=== PATIENT | male | born 1995 | race Caucasian/White ===

== ENCOUNTER 2017-09-03 20:09 | Emergency (ER) | payer BC, MEDICAID ==
[2017-09-03 20:19] VITALS: BP 111/71
--- NOTE | 2017-09-03 20:55 | UC ---
Shortness of Breath HPI - HPI Summary HPI Summary: This is nestor Irving documenting for attending Eladia Jacobson M.D. Patient is a 22 y/o male who presents to [facility] c/o CP and SOB. He states he began to have 2/10 aching CP yesterday afternoon with SOB, and today he started to have a mild cough. Patient also reports weird hiccups that occur when hes smoking, so he has not smoked today. He also states hes feeling anxious, vomiting bile twice today, and feels a lump in his throat. Patient denies any digestive issues. About 1 year ago he had a panic attack with somewhat similar symptoms. Patient smokes about 1 ppd for the past 8 years. He denies any previous lung issues, but does have GERD.Has used nexium off and on for the past 6 mnths. Drinks alcohol daily, lots of coffee, smokes cigarettes. - History of Current Complaint Chief Complaint: UCChestPain Stated Complaint: CHEST CONGESTION Time Seen by Provider: 09/03/17 20:45 Hx Obtained From: Patient Onset/Duration: Gradual Onset, Lasting Days - 2, Still Present Current Severity: Mild - 2/10 Dyspnea At: Rest Aggrevating Factors: Other - Smoking Alleviating Factors: Nothing Associated Signs & Symptoms: Positive: Cough (Nonproductive), Chest Pain w/Cough , Other - Hiccups, anxious, vomiting Related History: Similar Episode - Panic attack ~1 year ago - Allergy/Home Medications Allergies/Adverse Reactions: Allergies Allergy/AdvReac Type Severity Reaction Status Date / Time No Known Allergies Allergy Verified 09/03/17 20:19 PMH/Surg Hx/FS Hx/Imm Hx GI/ History: Gastroesophageal Reflux Psychological History: Other Other Psychological History: Panic attack - Surgical History Surgical History: None - Family History Known Family History: Positive: Other - HLD, prostate and lung cancer, diverticulitis, colectomy - Social History Occupation: Employed Full-time Lives: With Family Alcohol Use: Occasionally Substance Use Type: None Smoking Status (MU): Current Every Day Smoker Amount Used/How Often: Almost 1 ppd - Immunization History Most Recent Influenza Vaccination: Pt unable to recall Review of Systems ENT: Other - lump in throat Respiratory: Shortness Of Breath, Cough Cardiovascular: Chest Pain Gastrointestinal: Vomiting, Other - "weird hiccups" Psychological: Anxious All Other Systems Reviewed And Are Negative: Yes Physical Exam Triage Information Reviewed: Yes Appearance: Well-Appearing Vital Signs: Initial Vital Signs Temp 98.3 F 09/03/17 20:16 Pulse 87 09/03/17 20:16 Resp 20 09/03/17 20:16 BP 111/71 09/03/17 20:16 Pulse Ox 100 09/03/17 20:16 Vital Signs Reviewed: Yes Eyes: Positive: Conjunctiva Clear ENT: Positive: Pharynx normal, Pharyngeal erythema Neck: Positive: Supple, Nontender Respiratory: Positive: Lungs clear, Normal breath sounds Cardiovascular: Positive: RRR, No Murmur Abdomen Description: Positive: Nontender, No Organomegaly, Soft Neurological Exam: Normal Neurological: Positive: Alert, Muscle Tone Normal Psychological Exam: Other - mildly anxious Skin Exam: Normal Shortness of Breath Dx - Course Course Of Treatment: omerazole for reflux. discussed importance of smokestopping. - Differential Dx/Diagnosis Provider Diagnoses: reflux. anxiety Discharge - Sign-Out/Discharge Documenting (check all that apply): Patient Departure - Discharge Plan Condition: Stable Disposition: HOME Prescriptions: Omeprazole 40 mg PO DAILY #30 capsule. Patient Education Materials: Gastroesophageal Reflux Disease (ED) Referrals: No Primary Care Phys,NOPCP [Primary Care Provider] - Additional Instructions: begin omeprazole 40mg once daily x 4 weeks to improve reflux. Taking t 20 to 30 minutes before a meal gives maximum effect. Continue smokestopping efforts, consider support with your primary care doctor. The [facility] hotline gives support and will provide medications to assist stopping. Decreasing smoking, alcohol and caffeine can help to decrease reflux. - Billing Disposition and Condition Condition: STABLE Disposition: Home
[2017-09-03] MEDS ORDERED: Omeprazole CAP* 20 MG PO ONE (21:04)
== END 2017-09-03 21:31 | disposition home or self-care (01) ==
LOC: UCEAST 20:09
DX: K21.9 Gastro-esophageal reflux disease without esophagitis (principal); F41.9 Anxiety disorder, unspecified; R06.02 Shortness of breath; F17.210 Nicotine dependence, cigarettes, uncomplicated
CPT/HCPCS: 93005; 99202; A9270-GY; G0463

== ENCOUNTER 2018-08-08 19:18 | Emergency (ER) | payer BC ==
[2018-08-08] MEDS ORDERED: Tetracaine 0.5% OPTH.SOL 4 ML* 1 DROP BTL ONE (20:34)
[2018-08-08] MEDS ORDERED: Fluorescein Sodium TOPICAL* 1 MG TEST STRIP OPHTHALMIC ONE (20:34)
[2018-08-08] MEDS ORDERED: Polymyx/Trimethoprim OPTH* 10 ML BTL RIGHT EYE ONE (21:00)
--- NOTE | 2018-08-08 21:00 | ED ---
Throat Pain/Nasal Congestion - HPI Summary HPI Summary: 22-year-old male presents with foreign body in right eye today. He states that he was working on a house and may have gotten something into his eye. He attempted to remove the foreign body but was unable to do so. believes his tetanus is up-to-date. Has no medical conditions. Denies any change in vision. No blurry vision or double vision. - History of Current Complaint Chief Complaint: EDEyeProblem Time Seen by Provider: 08/08/18 20:15 - Allergies/Home Medications Allergies/Adverse Reactions: Allergies Allergy/AdvReac Type Severity Reaction Status Date / Time Opioids-Methadone and Related Allergy See Comment Verified 08/08/18 19:26 PMH/Surg Hx/FS Hx/Imm Hx Endocrine/Hematology History: Denies: Hx Diabetes, Hx Thyroid Disease Cardiovascular History: Denies: Hx Hypertension Respiratory History: Denies: Hx Asthma, Hx Chronic Obstructive Pulmonary Disease (COPD) GI History: Denies: Hx Ulcer Psychiatric History: Reports: Hx Community Mental Health Tx, Hx Substance Abuse Denies: Hx Anxiety, Hx Attention Deficit Hyperactivity Disorder, Hx Eating Disorder, Hx Depression, Hx Bipolar Disorder, Hx of Violent Episodes Against Others Infectious Disease History: No Infectious Disease History: Denies: Hx Hepatitis, Hx Human Immunodeficiency Virus (HIV), Traveled Outside the [place] in Last 30 Days - Family History Known Family History: Positive: Other - HLD, prostate and lung cancer, diverticulitis, colectomy - Social History Alcohol Use: Occasionally Substance Use Type: Reports: None Smoking Status (MU): Current Every Day Smoker Amount Used/How Often: Almost 1 ppd Review of Systems Negative: Fever Positive: Erythema Negative: Chest Pain Negative: Shortness Of Breath All Other Systems Reviewed And Are Negative: Yes Physical Exam Triage Information Reviewed: Yes Vital Signs On Initial Exam: Initial Vitals Temp Pulse Resp BP Pulse Ox 99.2 F 101 20 138/84 96 08/08/18 19:25 08/08/18 19:25 08/08/18 19:25 08/08/18 19:25 08/08/18 19:25 Vital Signs Reviewed: Yes Appearance: Positive: Well-Appearing Skin: Positive: Warm, Dry Head/Face: Positive: Normal Head/Face Inspection Eyes: Positive: Normal, EOMI, TAMMY, Conjunctiva Inflammed, Other: - foreign body in right eye, no flourscein exam uptake on sclera noted, no corneal abrasion seen ENT: Positive: Pharynx normal, TMs normal Respiratory/Lung Sounds: Positive: Clear to Auscultation, Breath Sounds Present Cardiovascular: Positive: Normal, RRR Musculoskeletal: Positive: Normal Neurological: Positive: Normal Psychiatric: Positive: Normal Procedures - Eye Procedure Right Alcaine Drops Administered: Yes - sclera uptake Eye FB Removal: removal w/ cotton swab Diagnostics - Vital Signs Vital Signs Temp Pulse Resp BP Pulse Ox 08/08/18 19:25 99.2 F 101 20 138/84 96 - Laboratory Lab Statement: Any lab studies that have been ordered have been reviewed, and results considered in the medical decision making process. EENT Course/Dx - Course Course Of Treatment: 22-year-old male presents with foreign body in right eye today. He states that he was working on a house and may have gotten something into his eye. He attempted to remove the foreign body but was unable to do so. believes his tetanus is up-to-date. Has no medical conditions. Denies any change in vision. No blurry vision or double vision. On exam has foreign body noted in right eye. Removed with Q-tip. Performed fluorscein test saw uptake on the sclera. No corneal abrasion noted. Will place patient on Polytrim. told if no improvement follow up with ortho. Patient understands agrees with plan. - Differential Diagnoses Differential Diagnoses: Conjunctivitis, Corneal Abrasion, Foreign Body - Diagnoses Provider Diagnoses: Foreign body of right eye Discharge - Sign-Out/Discharge Documenting (check all that apply): Patient Departure Patient Received Moderate/Deep Sedation with Procedure: No - Discharge Plan Condition: Good Disposition: HOME Patient Education Materials: Eye Foreign Body (ED) Referrals: No Primary Care Phys,NOPCP [Primary Care Provider] - Danielito Colin MD [Medical Doctor] - Additional Instructions: Place 1 drop in eye 4 times a day for 5 days Use artificial tears or saline to rinse eye for symptomatic relief Take Tylenol or ibuprofen for pain Follow up with ophthalmology if no improvement in 5 days Return to ED if develop any new or worsening symptoms - Billing Disposition and Condition Condition: GOOD Disposition: Home
[2018-08-08 21:14] VITALS: BP 120/86
== END 2018-08-08 21:13 | disposition home or self-care (01) ==
LOC: ED 19:18
DX: T15.91XA Foreign body on external eye, part unspecified, right eye, initial encounter (principal); F17.210 Nicotine dependence, cigarettes, uncomplicated; X58.XXXA Exposure to other specified factors, initial encounter
CPT/HCPCS: 99281; A9270-GY

== ENCOUNTER 2021-09-18 16:39 | Inpatient (IN) ==
[2021-09-18] MEDS ORDERED: Al Hydrox/Mg Hydrox/Simet LIQ 30 ML UDC PO PRN (19:15)
[2021-09-18] MEDS: Nicotine GUM 2MG FRUIT FLAVOR PO PRN (19:31)
[2021-09-19] MEDS: Nicotine GUM 2MG FRUIT FLAVOR PO PRN ×5 (07:13→19:59)
[2021-09-19] MEDS: Vitamin THERAPEUTIC TAB PO SCH (07:14)
[2021-09-19 08:15] LABS: HDL Cholesterol 43.1 mg/dL
[2021-09-20] MEDS: Vitamin THERAPEUTIC TAB PO SCH (07:06)
[2021-09-20] MEDS: Nicotine GUM 2MG FRUIT FLAVOR PO PRN ×4 (07:07→20:29)
[2021-09-21] MEDS: Nicotine GUM 2MG FRUIT FLAVOR PO PRN ×6 (06:42→20:45)
[2021-09-21] MEDS: Vitamin THERAPEUTIC TAB PO SCH (07:46)
[2021-09-22] MEDS: Nicotine GUM 2MG FRUIT FLAVOR PO PRN ×5 (07:02→20:34)
[2021-09-22] MEDS: Vitamin THERAPEUTIC TAB PO SCH (07:49)
[2021-09-23] MEDS: Vitamin THERAPEUTIC TAB PO SCH (07:12)
[2021-09-23] MEDS: Nicotine GUM 2MG FRUIT FLAVOR PO PRN ×6 (07:12→21:01)
[2021-09-24] MEDS: Vitamin THERAPEUTIC TAB PO SCH (08:25)
[2021-09-24] MEDS: Nicotine GUM 2MG FRUIT FLAVOR PO PRN (08:26)
[2021-09-24 09:08] VITALS: BP 123/81
== END 2021-09-24 11:52 | disposition home or self-care (01) | DRG 751 ==
LOC: BSU 17:43
PROVIDERS: ADMIT Psychiatry & Neurology Psychiatry; ATTEND Psychiatry & Neurology Psychiatry